=== PATIENT | female | born 1995 | race Caucasian/White ===

== ENCOUNTER 2018-03-10 12:59 | Emergency (ER) | payer BC ==
[2018-03-10 13:14] VITALS: BP 131/64; PULSE 97; TEMP 98.9
--- NOTE | 2018-03-10 15:05 | PDOC ---
History of Present Illness - General Chief Complaint: Pain Stated Complaint: RT KNEE PAIN Time Seen by Provider: 03/10/18 13:44 - History of Present Illness Initial Comments: 03/10/18 15:00 CHIEF COMPLAINT: pain to R knee HISTORY OF PRESENT ILLNESS: 22 yo F with no significant PMH presents to [facility] with pain to R knee. Patient reports that she has had chronic knee issues "ever since middle school and high school" and yesterday when she was at work the knee "gave out" twice. She reports that the knee tends to give out on her when she walks down stairs. She denies current pain and reports that "usually Motrin will take the pain away." PAST MEDICAL HISTORY: Denies past medical history FAMILY HISTORY: Denies SOCIAL HISTORY:Denies tobacco, alcohol, illicit drug use. SURGICAL HISTORY: Denies ALLERGIES: No known drug allergies REVIEW OF SYSTEMS General/Constitutional: Denies fever or chills. Denies weakness, weight change. HEENT: Denies change in vision. Denies ear pain or discharge. Denies sore throat. Cardiovascular: Denies chest pain or shortness of breath. Respiratory: Denies cough, wheezing, or hemoptysis. Gastrointestinal: Denies nausea, vomiting, diarrhea or constipation. Denies rectal bleeding. Genitourinary: Denies dysuria, frequency, or change in urination. Musculoskeletal: Denies joint or muscle swelling or pain. Denies neck or back pain. Skin and breasts: Denies rash or easy bruising. PHYSICAL EXAM General Appearance: Well-appearing, appropriately dressed. No apparent distress. HEENT: EOMI, PERRLA. No conjunctival pallor. No photophobia, scleral icterus. Respiratory/Chest: Lungs CTAB. Cardiovascular: RRR. S1, S2. Musculoskeletal/Extremities: Positive posterior drawer test. Positive valgus stress test. FROM of all extremities, normal capillary refill. Pelvis Stable. No CVA tenderness. No tenderness to extremities, pedal edema, swelling, erythema or deformity. Integumentary: Appropriate color, dry, warm. No cyanosis, erythema, jaundice or rash Neurologic: life insurance sales II-XII intact. Fully oriented, alert. Appropriate mood/affect. Motor strength 5/5. No appreciable EOM palsy, facial droop or sensory deficit. Past History - Past Medical History Allergies/Adverse Reactions: Allergies Allergy/AdvReac Type Severity Reaction Status Date / Time No Known Allergies Allergy Verified 03/10/18 13:14 Home Medications: Ambulatory Orders Docusate Sodium [Colace -] 100 mg PO TID #21 capsule 10/16/13 No Home Medications 0 dose .ROUTE UTDICT 10/16/13 Polyethylene Glycol 3350 [Miralax 255 gm Btl -] 17 gm PO DAILY #1 bottle COPD: No - Suicide/Smoking/Psychosocial Hx Smoking History: Never smoked Hx Alcohol Use: No Substance Use Type: None *Physical Exam - Vital Signs Last Vital Signs Temp Pulse Resp BP Pulse Ox 98.9 F 97 H 18 131/64 99 03/10/18 13:11 03/10/18 13:11 03/10/18 13:11 03/10/18 13:11 03/10/18 13:11 ED Treatment Course - ADDITIONAL ORDERS Additional order review: Laboratory Results 03/10/18 14:24 Urine HCG, Qual Negative - RADIOLOGY Radiology Studies Ordered: Category Date Time Status KNEE 3 POS-RIGHT [RAD] Stat Radiology 03/10/18 13:48 Taken Medical Decision Making - Medical Decision Making 03/10/18 15:05 22 yo F with no significant PMH presents to [facility] with pain to R knee. -knee immobilizer -cruthces referral to PT/ortho *DC/Admit/Observation/Transfer Diagnosis at time of Disposition: Knee ligamentous laxity - Discharge Dispostion Disposition: HOME Condition at time of disposition: Stable Admit: No - Referrals Referrals: Gavin Larose MD [Primary Care Provider] - Jl Kenyon MD [Staff Physician] - - Patient Instructions Printed Discharge Instructions: DI for Ligament Sprains Additional Instructions: As discussed, please use knee immobilizer to rest your knee until you are seen by orthopedics. Follow up within the next week for further evaluation and referral to physical therapy and/or MRI. If you develop any worsening pain that is unrelieved by Motrin; loss of sensation to your legs; swelling, redness , warmth, or pain to the knee, please return to the ER. - Post Discharge Activity
== END 2018-03-10 15:34 | disposition home or self-care (01) ==
LOC: JERFT 12:59
PROC: 2W3QXYZ Immobilization of Right Lower Leg using Other Device (ICD-10-PCS; principal; 2018-03-10)
DX: M23.8X1 Other internal derangements of right knee (principal)
CPT/HCPCS: 73562-TC-RT-FY; 84703; 99281-25

== ENCOUNTER 2019-07-10 17:20 | Emergency (ER) | payer BC ==
[2019-07-10 17:25] VITALS: BP 123/66; PULSE 85; TEMP 98.4; BMI 19.3
--- NOTE | 2019-07-10 17:27 | PDOC ---
Rapid Medical Evaluation Time Seen by Provider: 07/10/19 17:24 Medical Evaluation: Allergies Allergy/AdvReac Type Severity Reaction Status Date / Time No Known Allergies Allergy Verified 03/10/18 13:14 07/10/19 17:25 I have performed a brief in-person evaluation of this patient. The patient presents with a chief complaint of: knee pain, right Pertinent physical exam findings:stable and in NAD, non-focal I have ordered the following: n/a The patient will proceed to the ED for further evaluation.
--- NOTE | 2019-07-10 18:04 | PDOC ---
History of Present Illness - General Chief Complaint: Chronic pain Stated Complaint: R/PATELLA PAIN Time Seen by Provider: 07/10/19 17:24 - History of Present Illness Initial Comments: 07/10/19 18:08 CHIEF COMPLAINT: R knee pain HISTORY OF PRESENT ILLNESS: 23 yo F with hx of chronic knee pain presents to [facility] with recurring R knee pain. Patient states she was followed by Dr. Gregory and Kostas previously and did have some relief of her knee pain s/p cortisone injection, but "now it's starting back up again." She denies any recent trauma or injury to the knee but reports that the knee pain worsens while standing. No recent travel or sick contacts. PAST MEDICAL HISTORY: Denies past medical history FAMILY HISTORY: Denies SOCIAL HISTORY: Denies tobacco, alcohol, illicit drug use. SURGICAL HISTORY: Denies ALLERGIES: No known drug allergies REVIEW OF SYSTEMS General/Constitutional: Denies fever or chills. Denies weakness, weight change. HEENT: Denies change in vision. Denies ear pain or discharge. Denies sore throat. Cardiovascular: Denies chest pain or shortness of breath. Respiratory: Denies cough, wheezing, or hemoptysis. Gastrointestinal: Denies nausea, vomiting, diarrhea or constipation. Denies rectal bleeding. Genitourinary: Denies dysuria, frequency, or change in urination. Musculoskeletal: R knee pain. Denies neck or back pain. Skin and breasts: Denies rash or easy bruising. Neurologic: Denies headache, vertigo, loss of consciousness, or loss of sensation. PHYSICAL EXAM General Appearance: Well-appearing, appropriately dressed. No apparent distress , no intoxication. HEENT: EOMI, PERRLA, normal ENT inspection, normal voice, TMs normal, pharynx normal. No conjunctival pallor. No photophobia, scleral icterus. Neck: Supple. Trachea midline. No tenderness, rigidity, carotid bruit, stridor , lymphadenopathy, or thyromegaly. Respiratory/Chest: Lungs CTAB. No shortness of breath, chest tenderness, respiratory distress, accessory muscle use. No crackles, rales, rhonchi, stridor , wheezing, dullness Cardiovascular: RRR. S1, S2. No JVD, murmur, bradycardia, tachycardia. Vascular Pulses: Dorsalis-Pedis (R): 2+, Dorsalis-Pedis (L): 2+ Gastrointestinal/Abdominal: Normal bowel sounds. Abdomen soft, non-distended. No tenderness or rebound tenderness. No organomegaly, pulsatile mass, guarding , hernia, hepatomegaly, splenomegaly. Lymphatic: No adenopathy, tenderness. Musculoskeletal/Extremities: Tenderness to R anterior knee. Full flexion/ extension. Negative varus/valgus. Normal inspection. FROM of all extremities, normal capillary refill. Pelvis Stable. No CVA tenderness. No tenderness to extremities, pedal edema, swelling, erythema or deformity. Integumentary: Appropriate color, dry, warm. 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 Fully oriented, alert. Appropriate mood/affect. Motor strength 5/5. No appreciable EOM palsy, facial droop or sensory deficit. Past History - Past Medical History Allergies/Adverse Reactions: Allergies Allergy/AdvReac Type Severity Reaction Status Date / Time No Known Allergies Allergy Verified 07/10/19 17:26 Home Medications: Ambulatory Orders Docusate Sodium [Colace -] 100 mg PO TID #21 capsule 10/16/13 No Home Medications 0 dose .ROUTE UTDICT 10/16/13 Polyethylene Glycol 3350 [Miralax 255 gm Btl -] 17 gm PO DAILY #1 bottle Diclofenac Sodium 75 mg PO BID #20 tablet. 07/10/19 COPD: No - Suicide/Smoking/Psychosocial Hx Smoking History: Never smoked Hx Alcohol Use: Yes Drug/Substance Use Hx: No Substance Use Type: None *Physical Exam - Vital Signs Last Vital Signs Temp Pulse Resp BP Pulse Ox 98.4 F 85 16 123/66 97 07/10/19 17:23 07/10/19 17:23 07/10/19 17:23 07/10/19 17:23 07/10/19 17:23 Medical Decision Making - Medical Decision Making 07/10/19 18:31 23 yo F with hx of chronic knee pain presents to [facility] with recurring R knee pain. Clinical presentation consistent with patellar femoral syndrome. crutches, NSAIDS. F/u With ortho. Advised patient to take medication as prescribed and follow up with ortho within the next week. Advised patient of signs and symptoms for return to ED. Patient verbalized understanding and agrees to plan. *DC/Admit/Observation/Transfer Diagnosis at time of Disposition: Patella-femoral syndrome Qualifiers: Laterality: right Qualified Code(s): M22.2X1 - Patellofemoral disorders, right knee - Discharge Dispostion Disposition: HOME Condition at time of disposition: Stable Decision to Admit order: No - Prescriptions Prescriptions: Diclofenac Sodium 75 mg PO BID #20 tablet.dr - Referrals Referrals: Dioni Darling DO [Staff Physician] - Jl Kenyon MD [Staff Physician] - - Patient Instructions Printed Discharge Instructions: DI for Patellofemoral Pain Syndrome-Adult Additional Instructions: Please take medications as prescribed. Follow up with orthopedics for continued management of your knee pain. If you develop any new or worsening symptoms, please return to the ER. - Post Discharge Activity Forms/Work/School Notes: Back to Work
== END 2019-07-10 18:47 | disposition home or self-care (01) ==
LOC: JERFT 17:20
DX: M22.2X1 Patellofemoral disorders, right knee (principal)
CPT/HCPCS: 73562-TC-RT-FY; 99282-25

== ENCOUNTER 2019-09-13 06:06 | Day surgery (SDC) | payer BC ==
[2019-09-10 16:25] VITALS: BMI 18.7
[2019-09-13] MEDS ORDERED: KETOROLAC TROMETHAMINE 30 MG/1 ML VIAL ONE (07:22)
[2019-09-13] MEDS ORDERED: ONDANSETRON 4 MG/2 ML VIAL ONE (07:22)
[2019-09-13] MEDS ORDERED: LIDOCAINE HCL/PF 2% SDV 5ML VIAL ONE (07:22)
[2019-09-13] MEDS ORDERED: ceFAZolin SODIUM 1 GM VIAL ONE (07:22)
[2019-09-13] MEDS ORDERED: DEXAMETHASONE SOD PHOSPHATE 4 MG/1 ML VIAL ONE (07:22)
--- NOTE | 2019-09-13 07:22 | HP ---
History & Physical Update - History History: No Change - Physical Physical: No Change - Assessment Assessment: No Change - Plan Plan: No Change
[2019-09-13] MEDS ORDERED: PROPOFOL 20 ML ONE ×3 (07:23→10:02)
[2019-09-13] MEDS ORDERED: MIDAZOLAM HCL 2 MG/2 ML SINGLE DOSE VIAL ONE ×3 (07:23→07:27)
[2019-09-13] MEDS ORDERED: fentaNYL CITRATE 250 MCG/5 ML VIAL ONE (07:23)
[2019-09-13] MEDS ORDERED: SUCCINYLCHOLINE CHLORIDE 200 MG/10 ML SYRINGE ONE (07:24)
[2019-09-13] MEDS ORDERED: EPHEDRINE SULFATE/0.9% NACL/PF 50 MG/10 ML SYRINGE NR ONE (07:24)
[2019-09-13] MEDS ORDERED: BUPIVACAINE LIPOSOME/PF (EXPAREL) 266 MG/20 ML VIAL ONE (07:27)
--- NOTE | 2019-09-13 11:08 | OPR ---
DATE OF OPERATION: 09/13/19 TITLE OF OPERATION: Right MPFL reconstruction, lateral retinacular release. PREOPERATIVE DIAGNOSIS: Right knee patellar instability, patellofemoral pain syndrome. POSTOPERATIVE DIAGNOSIS: Same as pre-op SURGEON: Dioni Darling DO PUMP MACHINE OPERATOR: Gerson Dempsey DO ANESTHESIA: General anesthesia SPECIMEN: none COMPLICATIONS: none EBL: minimal TOURNIQUE TIME: 83 Minutes INDICATIONS FOR SURGERY: Ms. Hogan is a 23 year old female who presented in the preoperative setting with achief complaint of right knee pain. Based on her symptoms of significant pain, pre-injury levelof activity, and after failure years of conservative management, including activity modification physical therapy, bracing, and a home exercise program, surgical treatment was discussed. The risks and benefits of surgery and anesthesia were discussed in detail including but notlimited to continued pain, continued instability, bleeding, infection, scarring, damage to vessels andnerves, failure to obtain the desired result, failure to heal, failureto return to sport or work.Understanding the risks and benefits, Ms. Hogan, opted to proceed with surgical management. SURGEON'S NARRATIVE: Ms. Hogan was brought to the operating room. She was prepped and draped in usual fashion sterile technique. Timeout was called. Site verification was performed and perioperative antibiotics were administered. The limb was exanguinated using an esmarch, and a tourniquet was inflated to 250mmHg. A standard anterolateral portal was made and the 4 mm 30 scope was started the knee joint without difficulty. This revealed no significant patellofemoral chondromalacia and no damage to the femoral groove. The medial lateral femoral joints were also pristine with intact menisci. There was significant patellar tilt and patellar misalignment. A lateral retinacular release was performed with an ablator, and there was moderate improvement of the patellar tilt. I then suction irrigated out the knee and withdrew the arthroscope. This completed the arthroscopy. I then turned to the MPFL Reconstruction part of the procedure. I made an incision just medial to the medial aspect of the knee approximately 3 cm in length, midway between the patella and the medial femoral condyle of the femur. After making anterior and posterior flaps, I cut down through the fascia overlying the superior 1/3rd of the patella, down to it's equator. I then made periosteal flaps exposing the patella bone, without entering into the capsule. Using a ronjeur, I removed soft tissue and periosteum from the patellar bone at I inserted two 1.7mm suture-anchors approximately 1cm apart, into the superior 1/3 of the patella. I then turned my attention to the femoral condyle. I used a rongeur to remove soft tissue from the origin of the MPFL on the femur, and inserted a k-wire to confirm my placement of the MPFL anchor at shottle's point. This was done using fluoroscopy. Once my location was confirmed, I placed a 5.5mm Helicoil double loaded anchor. I then brought the semi-tendinosis allograft from the back table. Using the sutures from the patella suture anchors, locking stitches were placed at the fci lidya of the allograft, and the allograft was secured to the patella. The sutures were then used to create a pants over vest configuration for secondary fixation of the graft, with the nino-osteum flaps that were created during patella exposure. My attention was turned to the femoral fixation. Using the sutures from the helicoil anchor, each limb of the allograft tendon was secured to the anchor using locking stitches in 90 degrees of flexion. Once this was complete, I was no longer able to pathologically subluxate the patella laterally. I was able to flex the knee to 130 without causing undue tension on the graft. I was pleased with the reconstruction. I cut the ends of the remaining allograft tendon short so as to not be prominent. After irrigating the wound thoroughly, the tourniquet was released and all significant bleeders were cauterized. I then closed the incision with 2-0 Vicryl followed by running 3-0 Monocryl. The portal incisions were closed with 3-0 nylon. Sterile dressings were placed and the patient was placed in a hinged brace locked in full extension. She tolerated procedure well and arrived recovery in stable condition. Dr. Gerson Dempsey was present as first-editorial assistant during the case, as there was no qualified certified medical technician assistant or resident available. POST-OPERATIVE PLAN; The patient will begin taking aspirin 325 BID x 30 days starting POD 1. She will remain PWB with crutches, in her ROM knee brace locked in extension, until her follow up in my office. She will continue to ice/elevate her right knee, and will start physical therapy within the next week. She will follow up in my office in 10-14 days for suture removal and dressing change. Dioni Darling DO
[2019-09-13 12:00] VITALS: TEMP 98.8
[2019-09-13] MEDS ORDERED: ONDANSETRON 4 MG/2 ML VIAL IVPUSH PRN (12:47)
[2019-09-13] MEDS ORDERED: oxyCODONE HCL 5 MG TABLET PO PRN ×2 (12:47)
[2019-09-13] MEDS ORDERED: LACTATED RINGERS SOLUTION 1,000 ML IV SCH (13:00)
[2019-09-13 14:25] VITALS: BP 104/56; PULSE 70
== END 2019-09-13 14:00 | disposition home or self-care (01) ==
LOC: FASU 06:06
PROVIDERS: ATTEND Orthopaedic Surgery Sports Medicine
PROC: 0SRC0NZ Replacement of Right Knee Joint with Patellofemoral Synthetic Substitute, Open Approach (ICD-10-PCS; 2019-09-13)
PROC: 0MNN4ZZ Release Right Knee Bursa and Ligament, Percutaneous Endoscopic Approach (ICD-10-PCS; principal; 2019-09-13 08:25)
DX: M25.361 Other instability, right knee (principal); M22.2X1 Patellofemoral disorders, right knee
CPT/HCPCS: 27442; 29873; C1713; 73560-TC-RT-FY; 81025; 94760